=== PATIENT | female | born 1945 | race Caucasian/White ===

== ENCOUNTER → 2016-10-25 | Outpatient (CLI) | payer MEDICARE, BC | END | disposition home or self-care (01) | LOC: CFH 10:22 | PROVIDERS: ATTEND Family Medicine | DX: Z12.31 Encounter for screening mammogram for malignant neoplasm of breast (principal); Z13.820 Encounter for screening for osteoporosis; M85.89 Other specified disorders of bone density and structure, multiple sites | CPT/HCPCS: 77080; G0202 ==

== ENCOUNTER → 2018-05-27 | Outpatient (CLI) | payer MEDICARE, BC | END | disposition home or self-care (01) | LOC: CFH 13:49 | PROVIDERS: ATTEND Family Medicine | DX: N64.4 Mastodynia (principal) | CPT/HCPCS: 77066 ==

== ENCOUNTER 2019-08-15 08:15 | Emergency (ER) | payer MEDICARE, BC ==
[~2019-08-15] VITALS: Ht 162.6 cm; Wt 82.0 kg
[2019-08-15] MEDS ORDERED: SODIUM CHLORIDE FLUSH 10ML SYR IVF ONE (09:00)
[2019-08-15 09:19] LABS: BASOPHILS # (AUTO) 0.04 x10^3/uL (0-0.1); BASOPHILS % (AUTO) 0 % (0-1); EOSINOPHILS # (AUTO) 0.16 x10^3/uL (0-0.4); EOSINOPHILS % (AUTO) 2 % (1-7); LYMPHOCYTES # (AUTO) 1.25 x10^3/uL (1-3.4); LYMPHOCYTES % (AUTO) 12 % (22-44); MD NO; MEAN CORPUSCULAR HEMOGLOBIN 31.4 pg (27.0-34.8); MEAN CORPUSCULAR HGB CONC 33.7 g/dL (32.4-35.8); MEAN PLATELET VOLUME 7.4 fL (7.4-10.4); MONOCYTES # (AUTO) 0.64 x10^3/uL (0.2-0.8); MONOCYTES % (AUTO) 6 % (2-9); NEUTROPHILS # (AUTO) 8.37 x10^3/uL (1.8-6.8); NEUTROPHILS % (AUTO) 80 % (42-75); PLATELET COUNT 295 x10^3/uL (130-400); RED BLOOD COUNT 4.65 x10^6/uL (3.82-5.3); RED CELL DISTRIBUTION WIDTH 14.4 % (9.6-15.2)
[2019-08-15 09:31] LABS: ALANINE AMINOTRANSFERASE 18 U/L (12-78); ALBUMIN 3.6 g/dL (3.4-5.0); ANION GAP 7 mmol/L (5-15); CHLORIDE 105 mmol/L (98-107); CREATININE 0.98 mg/dL (0.55-1.02)
[2019-08-15 09:34] LABS: ALKALINE PHOSPHATASE 116 U/L (45-117); BILIRUBIN,TOTAL 0.7 mg/dL (0.2-1.0); TOTAL PROTEIN 7.1 g/dL (6.4-8.2)
--- NOTE | 2019-08-15 09:34 | NUR ---
pt ambulatory to ed from home. abd pain 5/10 lower abdomen under umbilicus worse on walking/palp. unable to describe. denies n/v/d. last bm this am, normal. bs hyperact x4. hx diverticulitis, sts does not feel same. vss. no other complaints. plan for ct, piv est, labs pending, ua sent by edta. call garibay in reach. as
[2019-08-15 09:45] LABS: MICROSCOPIC NOT IND
[2019-08-15 09:53] LABS: CULTURE INDICATED? NO
--- NOTE | 2019-08-15 10:04 | NUR ---
labs wnl awaiting ct. as
--- NOTE | 2019-08-15 10:32 | NUR ---
called ct,sts pt will be up soon. pt resting in room no needs at this time. as
--- NOTE | 2019-08-15 10:52 | NUR ---
pt to ct. as
--- NOTE | 2019-08-15 10:59 | NUR ---
BACK FROM CT, NO CHANGE IN CONDITION. VSS.
[2019-08-15] MEDS ORDERED: OMNIPAQUE 350 MG/ML, 100ML BOTTLE ONE (11:03)
[2019-08-15 11:40] VITALS: BP 155/71
== END 2019-08-15 12:06 | disposition home or self-care (01) ==
LOC: ED 09:18
DX: R10.32 Left lower quadrant pain (principal); R10.31 Right lower quadrant pain; E78.5 Hyperlipidemia, unspecified; Z90.710 Acquired absence of both cervix and uterus
CPT/HCPCS: 36415; 74177; 80053; 81003; 83690; 85025; 99284; Q9967

== ENCOUNTER 2019-08-17 11:28 | Emergency (ER) | payer MEDICARE, BC ==
[~2019-08-17] VITALS: Ht 162.6 cm; Wt 81.4 kg
--- NOTE | 2019-08-17 12:06 | NUR ---
pt presents to ED with c/o midline suprapubic pain that radiates to right lower abd pain x2 days, seen and evaluated at this ED on day of onset. pt states pain has not worsened but not improved. pt denies any vag bleeding/cramping/discharge. pt denies n/v/d. awaiting MD and orders.
--- NOTE | 2019-08-17 12:50 | NUR ---
pt up to bathroom to void, gait steady using own walker. now back in bed, bp and spo2 monitors in place. MD Lopez at bedside.
[2019-08-17 13:33] LABS: BASOPHILS # (AUTO) 0.02 x10^3/uL (0-0.1); BASOPHILS % (AUTO) 0 % (0-1); EOSINOPHILS # (AUTO) 0.08 x10^3/uL (0-0.4); EOSINOPHILS % (AUTO) 1 % (1-7); LYMPHOCYTES # (AUTO) 1.29 x10^3/uL (1-3.4); LYMPHOCYTES % (AUTO) 15 % (22-44); MD NO; MEAN CORPUSCULAR HEMOGLOBIN 31.1 pg (27.0-34.8); MEAN CORPUSCULAR HGB CONC 33.7 g/dL (32.4-35.8); MEAN CORPUSCULAR VOLUME 92.5 fL (80-100); MEAN PLATELET VOLUME 7.6 fL (7.4-10.4); MONOCYTES # (AUTO) 0.68 x10^3/uL (0.2-0.8); MONOCYTES % (AUTO) 8 % (2-9); NEUTROPHILS # (AUTO) 6.82 x10^3/uL (1.8-6.8); NEUTROPHILS % (AUTO) 77 % (42-75); PLATELET COUNT 306 x10^3/uL (130-400); RED BLOOD COUNT 4.53 x10^6/uL (3.82-5.3); RED CELL DISTRIBUTION WIDTH 14.1 % (9.6-15.2)
[2019-08-17 13:39] LABS: MICROSCOPIC AUTO
[2019-08-17 13:45] LABS: ALBUMIN 3.2 g/dL (3.4-5.0); ANION GAP 8 mmol/L (5-15); CALCIUM 9.1 mg/dL (8.5-10.1); CHLORIDE 104 mmol/L (98-107)
[2019-08-17 13:48] LABS: ALANINE AMINOTRANSFERASE 14 U/L (12-78); ALKALINE PHOSPHATASE 107 U/L (45-117); BILIRUBIN,TOTAL 0.7 mg/dL (0.2-1.0); CREATININE 0.92 mg/dL (0.55-1.02); TOTAL PROTEIN 7.2 g/dL (6.4-8.2)
[2019-08-17 13:49] LABS: CULTURE INDICATED? YES
--- NOTE | 2019-08-17 14:19 | NUR ---
pt resting on gurney, resps even and unlabored, pt a&o. pt reports suprapubic pain level 8/10, declines need for pain medication at this time. all results back, chart up for recheck. awaiting MD and dispo.
--- NOTE | 2019-08-17 15:00 | NUR ---
REPORT GIVEN TO CLYDE NICHOLAS. ALL RESULTS BACK, CHART UP FOR RECHECK. AWAITING MD AND ORDERS AT THIS TIME.
--- NOTE | 2019-08-17 15:00 | NUR ---
REPORT FROM CLYDE TOLLIVER. PT RESTING IN MARCIOGOEHNERPHILIPP NOTED. REPORTS MILD PAIN. ERP AWARE
[2019-08-17] MEDS ORDERED: HYDROmorphone 1 MG/ML, 1ML INJ ONE (15:08)
[2019-08-17] MEDS ORDERED: HYDROmorphone 2 MG/ML, 1ML IVPush PRN (15:30)
--- NOTE | 2019-08-17 15:35 | NUR ---
IV ESTABLISHED. PT MEDICATED PER EMAR FOR 02/28 ABD PAIN. SPO2 MONITORING IN PLACE. PT PLACED ON 2L O2 BY AK FOR SUPPORT. AWAITING MRI
[2019-08-17] MEDS ORDERED: GADOTERATE 10 MMOL/20 ML SYR ONE (16:33)
--- NOTE | 2019-08-17 16:54 | NUR ---
PT RETURNED FROM MRI, TEXTING ON CELL PHONE. PT REPORTS SIGNIFICANT IMPROVEMENT IN PAIN, 0/10. PT/FAMILY UPDATED TO POC (MRI RESULT/RECHECK/DISPO) AND DEMONSTRATES UNDERSTANDING.
[2019-08-17] MEDS ORDERED: KETOROLAC 30 MG/1 ML ONE (17:56)
[2019-08-17 17:59] VITALS: BP 127/70
[2019-08-17] MEDS ORDERED: KETOROLAC 30 MG/1 ML IVPush ONE (18:00)
--- NOTE | 2019-08-17 18:25 | NUR ---
DC EDUCATION PROVIDED, PT DEMONSTRATES UNDERSTANDING. PT AMBUALTED STEADILY TO DC WITH DAUGHTER. DAUGHTER TO TRANSPORT PT HOME.
== END 2019-08-17 18:26 | disposition home or self-care (01) ==
LOC: ED 14:24
DX: R10.2 Pelvic and perineal pain (principal); E78.5 Hyperlipidemia, unspecified; Z90.710 Acquired absence of both cervix and uterus
CPT/HCPCS: 36415; 72197; 74176; 80053; 81001; 85025; 87086; 96374; 96375; 99284; A9575; J1170; J1885

== ENCOUNTER 2020-06-19 11:27 | Emergency (ER) | payer MEDICARE, BC ==
[~2020-06-19] VITALS: Ht 162.6 cm; Wt 82.7 kg
--- NOTE | 2020-06-19 12:10 | NUR ---
pt w c/o cp L breast radiates into L shoulder intermittent, dull, woke her up at night, x4 days. plays pickleball, denies trauma/heavy lifting. no n/v/d/sob. no pain at moment. awaiting md, call garibay in room, friend in room. as
[2020-06-19] MEDS ORDERED: SODIUM CHLORIDE FLUSH 10ML SYR IVF ONE (12:30)
[2020-06-19] MEDS ORDERED: ASPIRIN 81 MG TABLET CHEW PO ONE (12:30)
[2020-06-19] MEDS ORDERED: ASPIRIN 81 MG TABLET CHEW ONE (12:34)
[2020-06-19] MEDS ORDERED: EZET10TA70 PO (12:49)
[2020-06-19] MEDS ORDERED: LEVO88TA4 PO (12:49)
[2020-06-19] MEDS ORDERED: ZOLP-413 PO (12:49)
[2020-06-19 13:04] LABS: BASOPHILS % (AUTO) 1 % (0-1); EOSINOPHILS % (AUTO) 4 % (1-7); LYMPHOCYTES % (AUTO) 29 % (22-44); MEAN CORPUSCULAR HEMOGLOBIN 31.2 pg (27.0-34.8); MEAN CORPUSCULAR HGB CONC 33.7 g/dL (32.4-35.8); MEAN PLATELET VOLUME 7.6 fL (7.4-10.4); MONOCYTES % (AUTO) 8 % (2-9); NEUTROPHILS % (AUTO) 58 % (42-75); PLATELET COUNT 332 x10^3/uL (130-400); RED BLOOD COUNT 4.68 x10^6/uL (3.82-5.3); RED CELL DISTRIBUTION WIDTH 13.7 % (9.6-15.2)
[2020-06-19 13:07] LABS: MD NO
[2020-06-19 13:14] LABS: ALBUMIN 3.7 g/dL (3.4-5.0); ANION GAP 7 mmol/L (5-15); CALCIUM 9.3 mg/dL (8.5-10.1); CHLORIDE 104 mmol/L (98-107); CREATININE 0.96 mg/dL (0.55-1.02)
[2020-06-19 13:18] LABS: TROPONIN I < 0.015 ng/mL (0.000-0.045)
[2020-06-19] MEDS ORDERED: METOPROLOL SUCCINATE 25 MG TAB.ER.24H PO ONE (13:25)
--- NOTE | 2020-06-19 13:36 | NUR ---
UP FOR RECHECK, VSS CHARTED, HOLD METOPROLOL AWARE OF VS. NAD, NO CP.
--- NOTE | 2020-06-19 14:17 | NUR ---
possible admit awaiting dispo. nad. as
[2020-06-19 15:02] VITALS: BP 139/85
== END 2020-06-19 15:08 | disposition home or self-care (01) ==
LOC: ED 13:01
DX: R07.89 Other chest pain (principal); E78.5 Hyperlipidemia, unspecified; Z87.891 Personal history of nicotine dependence; Z90.710 Acquired absence of both cervix and uterus; Z86.39 Personal history of other endocrine, nutritional and metabolic disease
CPT/HCPCS: 36415; 71045; 80048; 82040; 84484; 85025; 93005; 99285

== ENCOUNTER 2020-06-20 14:49 | Emergency (ER) | payer MEDICARE, BC ==
[~2020-06-20] VITALS: Ht 162.6 cm; Wt 83.0 kg
[~2020-06-20 14:49] MED LIST: EZET10TA70 PO; LEVO88TA4 PO; ZOLP-413 PO
[2020-06-20 14:56] VITALS: BP 127/79
[2020-06-20 15:40] LABS: BASOPHILS % (AUTO) 1 % (0-1); EOSINOPHILS % (AUTO) 3 % (1-7); LYMPHOCYTES % (AUTO) 29 % (22-44); MEAN CORPUSCULAR HEMOGLOBIN 31.2 pg (27.0-34.8); MEAN CORPUSCULAR HGB CONC 33.6 g/dL (32.4-35.8); MEAN PLATELET VOLUME 7.6 fL (7.4-10.4); MONOCYTES % (AUTO) 8 % (2-9); NEUTROPHILS % (AUTO) 59 % (42-75); PLATELET COUNT 358 x10^3/uL (130-400); RED BLOOD COUNT 4.83 x10^6/uL (3.82-5.3); RED CELL DISTRIBUTION WIDTH 13.8 % (9.6-15.2)
[2020-06-20 15:47] LABS: ALANINE AMINOTRANSFERASE 16 U/L (12-78); ALBUMIN 3.8 g/dL (3.4-5.0); ANION GAP 4 mmol/L (5-15); CALCIUM 9.1 mg/dL (8.5-10.1); CHLORIDE 101 mmol/L (98-107); CREATININE 0.99 mg/dL (0.55-1.02); MD NO
[2020-06-20 15:51] LABS: ALKALINE PHOSPHATASE 122 U/L (45-117); BILIRUBIN,TOTAL 0.5 mg/dL (0.2-1.0); TOTAL PROTEIN 7.6 g/dL (6.4-8.2); TROPONIN I < 0.015 ng/mL (0.000-0.045)
== END 2020-06-20 17:17 | disposition left against medical advice (07) ==
LOC: ED 17:11
DX: R07.9 Chest pain, unspecified (principal); R94.31 Abnormal electrocardiogram [ECG] [EKG]
CPT/HCPCS: 36415; 71045; 80053; 84484; 85025; 93005; 99285

== ENCOUNTER 2020-06-22 11:50 | Day surgery (SDC) | payer MEDICARE, BC ==
[~2020-06-22] VITALS: Ht 162.6 cm; Wt 81.8 kg
[2020-06-22] MEDS ORDERED: SODIUM CHLORIDE 0.9% 1,000 ML IV SCH (12:30)
[2020-06-22 12:45] VITALS: BP 148/79
[2020-06-22] MEDS ORDERED: MIDAZOLAM 1 MG/ML, 2ML ONE (15:34)
[2020-06-22] MEDS ORDERED: HEPARIN 1,000 UNITS/ML, 10ML ONE (15:34)
[2020-06-22] MEDS ORDERED: FENTANYL PF 100 MCG/2ML ONE (15:34)
[2020-06-22] MEDS ORDERED: VERAPAMIL 2.5 MG/ML, 2ML ONE (15:34)
[2020-06-22] MEDS ORDERED: LIDOCAINE-MPF 1%, 5ML ONE (15:34)
== END 2020-06-22 17:30 | disposition home or self-care (01) ==
LOC: CACL 11:50
PROVIDERS: ATTEND Internal Medicine Cardiovascular Disease
DX: R94.31 Abnormal electrocardiogram [ECG] [EKG] (principal); I20.0 Unstable angina; E11.9 Type 2 diabetes mellitus without complications; E78.5 Hyperlipidemia, unspecified; E03.9 Hypothyroidism, unspecified; M19.90 Unspecified osteoarthritis, unspecified site; E66.3 Overweight; Z68.31 Body mass index [BMI] 31.0-31.9, adult; Z79.1 Long term (current) use of non-steroidal anti-inflammatories (NSAID); Z79.890 Hormone replacement therapy; Z79.899 Other long term (current) drug therapy; Z87.891 Personal history of nicotine dependence; Z90.710 Acquired absence of both cervix and uterus; Z96.653 Presence of artificial knee joint, bilateral
CPT/HCPCS: 93458; 99156; C1769; C1894; J1644; J2250; J3010; Q9967

== ENCOUNTER → 2020-08-01 | Outpatient (CLI) | payer MEDICARE, BC | END | disposition home or self-care (01) | LOC: CFH 10:19 | PROVIDERS: ATTEND Family Medicine | DX: Z12.31 Encounter for screening mammogram for malignant neoplasm of breast (principal); N95.9 Unspecified menopausal and perimenopausal disorder; M85.80 Other specified disorders of bone density and structure, unspecified site | CPT/HCPCS: 77063; 77067; 77080 ==

== ENCOUNTER 2021-03-14 09:52 | Outpatient (CLI) | payer MEDICARE, BC | END 2021-03-14 23:59 | disposition home or self-care (01) | LOC: CVU 09:52 | PROVIDERS: ATTEND Internal Medicine Cardiovascular Disease | DX: I83.92 Asymptomatic varicose veins of left lower extremity (principal); R60.9 Edema, unspecified | CPT/HCPCS: 93970 ==